=== PATIENT | male | born 1935 | race Caucasian/White ===

== ENCOUNTER 2016-04-28 14:22 | Emergency (ER) | payer MEDICARE ==
[~2016-04-28] VITALS: Ht 170.2 cm; Wt 117.9 kg
[~2016-04-28 14:22] MED LIST: AVOD0.5CAP PO; LSNP20T PO; LVF250T PO; MELO-198 PO; METR500T PO; MTF500T PO; OMG1KC PO; ONDAN4ODT PO; TAMS0.4C2 PO; VIT1TABL57 PO
[2016-04-28] MEDS ORDERED: RT-ALBUTEROL/IPRATROPIUM 3 ML (DUONEB) VIAL INH ONE (14:45)
--- NOTE | 2016-04-28 15:07 | ED Cough/URI ---
General Chief Complaint: Cough/Cold/Flu Symptoms Stated Complaint: COUGH/CONGESTION WEAKNESS Nursing Triage Note: PT HAS COLD COUGH FLU SX, WAS SEEN BY DR WOLFF AND GIVEN SCRIPTS, NOT ANY BETTER Source: patient Exam Limitations: no limitations History of Present Illness Time seen by provider: 15:07 Initial Comments 80-year-old male patient presents to the emergency department with complaints of cough, congestion, shortness of air, and intermittent wheezing. Patient states he was given prescriptions for prednisone and albuterol inhaler by Dr. Wolff. Denies any improvement in symptoms. Timing/Duration: constant, week Severity/Quality: productive cough Prior Episodes/Possible Cause: no prior episodes Modifying Factors: Worse With Albuterol Inhaler (no improvement), Worse With Coughing Allergies and Home Medications Allergies Coded Allergies: No Known Drug Allergies (Unverified , 05/27/12) Home Medications Albuterol Sulfate 2.5 Mg/3 Ml Vial.neb #28 2.5 MG IH Q6H PRN PRN SHORTNESS OF BREATH Prescribed by: REYNA GANT on 04/28/161541 Azithromycin 250 Mg Tablet #6 250 MG PO UD TAKE 2 TABLETS TODAY, THEN TAKE 1 TABLET DAILY FOR 4 MORE DAYS Prescribed by: REYNA GANT on 04/28/161541 Dutasteride 0.5 Mg Cap 0.5 MG PO DAILY (Reported) Lisinopril 20 Mg Tab 20 MG PO DAILY (Reported) Metformin Hcl 500 Mg Tablet 1 EACH PO DAILY (Reported) [place] 3 Polyunsat Fatty Acids 1,000 Mg Cap 1,000 MG PO DAILY (Reported) Prednisone 20 Mg Tab #10 20 MG PO BID Prescribed by: REYNA GANT on 04/28/161541 Promethazine HCl/Codeine 118 Ml Syrup #120 5 ML PO Q6H PRN PRN COUGH Prescribed by: REYNA GANT on 04/28/16 154 Tamsulosin Hcl 0.4 Mg Cap.sr.24h 0.4 MG PO DAILY (Reported) Vit D3 & K/Berberine Hcl/Hops 1 Each Tablet 1 EACH PO DAILY (Reported) Constitutional: chillsNo diaphoresis, No dizziness, fever (low-grade fevers) malaise EENTM: no symptoms reported Respiratory: see HPI coughNo dyspnea on exertion, No orthopnea, phlegm short of breath wheezing other (rib pain with coughing) Cardiovascular: no symptoms reportedNo edema, No palpitations, No syncope Gastrointestinal: No abdominal pain, No constipation, No diarrhea, No nausea, No vomiting Genitourinary: no symptoms reported Musculoskeletal: no symptoms reported Skin: no symptoms reported Psychiatric/Neurological: No Symptoms Reported Immunological/Allergic: no symptoms reported All Other Systems Reviewed Negative Unless Noted: Yes (Negative excepted noted.) Past Tmtjzfj-Acckqy-Bkfhln Hx Patient Social History Alcohol Use: Denies Use Recreational Drug Use: No Smoking Status: Never a Smoker Recent Foreign Travel: No Contact w/Someone Who Travel: No Recent Infectious Disease Expo: No Recent Hopitalizations: No Immunizations Up To Date Date of Pneumonia Vaccine: Aug 21, 2012 Seasonal Allergies Seasonal Allergies: No Surgeries HX Surgeries: Yes (HERNIA REPAIR) Respiratory Hx Respiratory Disorders: No Cardiovascular Hx Cardiac Disorders: No Neurological Hx Neurological Disorders: No Genitourinary Hx Genitourinary Disorders: No Gastrointestinal Hx Gastrointestinal Disorders: Yes Gastrointestinal Disorders: Gastroesophageal Reflux, Veras's Esophagus, Hiatal Hernia Musculoskeletal Hx Musculoskeletal Disorders: No Endocrine Hx Endocrine Disorders: Yes (borderline diabetes.) Endocrine Disorders: Diabetes, Non-Insulin dep Cancer Hx Cancer: No Psychosocial Hx Psychiatric Problems: No Integumentary HX Skin/Integumentary Disorder: No Blood Transfusions Hx Blood Disorders: No Reviewed Nursing Assessment Reviewed/Agree w Nursing PMH: Yes Family Medical History Significant Family History: No Pertinent Family Hx Physical Exam Vital Signs Capillary Refill : Less Than 3 Seconds General Appearance: WD/WN no apparent distress HEENT: PERRL/EOMI TMs normal pharyngeal erythema Neck: supple normal inspection Respiratory: no respiratory distress no accessory muscle use decreased breath sounds wheezing expiration other (ribs tender to palpation.) Cardiovascular: normal peripheral pulses regular rate, rhythm no edema no murmur Gastrointestinal: non tender softNo distended Extremities: no pedal edema normal capillary refill Neurologic/Psychiatric: alert normal mood/affect oriented x 3 Skin: normal color warm/dry Progress/Results/Core Measures Results/Orders My Orders Orders-REYNA GANT Chest Pa/Lat (2 View) (04/28/16 14:43) Albuterol/Ipra Inhalation Soln (Duoneb I (04/28/16 14:45) Svn Sm Volume Nebulizer Rt-Rfs (04/28/16 14:43) Medications Given in ED Vital Signs/I&O Blood Pressure Mean: 77 Diagnostic Imaging Diagonstic Imaging: Xray Plain Films/CT/US/NM/MRI: chest Comments FINDINGS: Frontal and lateral views of the chest demonstrate stable calcified mediastinal lymph nodes. The lungs are clear. The heart size and vascularity are normal. There are no pleural effusions. IMPRESSION: Negative chest. Dictated by: Dictated on workstation # [id number] Reviewed: Reviewed by Me (radiology report reviewed by me) Departure Communication Progress Notes Patient reports improved symptoms after the nebulizer treatment. Patient states he is also using his albuterol inhaler incorrectly at home. Diagnostic findings discussed with the patient. Plan for discharge to home. Impression Impression: Primary Impression: Acute bronchitis Qualified Code: J20.9 - Acute bronchitis, unspecified Disposition: HOME, SELF-CARE Condition: Improved Departure-Patient Inst. Decision time for Depature: 15:37 Referrals: LUIS CARLOS WOLFF DO (PCP/Family) Primary Care Physician Patient Instructions: Acute Bronchitis, Adult (DC) Add. Discharge Instructions: All discharge instructions reviewed with patient and/or family. Voiced understanding. Medications as instructed. Tylenol extra strength over-the- counter as directed for pain, fever, or headache. Ibuprofen 600 mg by mouth every 6-8 hours as needed for pain, headache, or fever. Push fluids. Humidifier if needed. Follow-up with Dr. Wolff as an outpatient for a recheck if no improvement in symptoms. Return to the emergency department for worsened cough, shortness of air, fever, dizziness, chest pain, vomiting, or any other concerns. Scripts Nebulizer (Compact Compressor Nebulizer)1 Each Each #1 EACH MC Q6H PRN SHORTNESS OF BREATH Ref 0 Prov:REYNA GANT 04/28/16 Azithromycin (Zithromax)250 Mg Htdool648 Mg PO UD #6 TAB Ref 0 TAKE 2 TABLETS TODAY, THEN TAKE 1 TABLET DAILY FOR 4 MORE DAYS Prov:REYNA GANT 04/28/16 Promethazine HCl/Codeine (Promethazine-Codeine Syrup)118 Ml Syrup5 Ml PO Q6H PRN COUGH #120 ML Ref 0 Prov:REYNA GANT 04/28/16 Albuterol Sulfate 2.5 Mg/3 Ml Vial.neb2.5 Mg IH Q6H PRN SHORTNESS OF BREATH #28 EA Ref 0 Prov:REYNA GANT 04/28/16 Prednisone 20 Mg Tab20 Mg PO BID #10 TAB Ref 0 Prov:REYNA GANT 04/28/16 REYNA GANT Apr 28, 2016 15:07
--- NOTE | 2016-04-28 15:10 | Diagnostic Imaging Report ---
INDICATION: Patient has been treated with cough and flu-like symptoms with medications and not getting better. COMPARISON STUDY: Chest from 05/04/2013. FINDINGS: Frontal and lateral views of the chest demonstrate stable calcified mediastinal lymph nodes. The lungs are clear. The heart size and vascularity are normal. There are no pleural effusions. IMPRESSION: Negative chest. Dictated by: Dictated on workstation # [id number]
[2016-04-28] MEDS ORDERED: CODE118S2 PO (15:42)
[2016-04-28] MEDS ORDERED: PRD20T PO (15:42)
[2016-04-28] MEDS ORDERED: NEBU1KIT3 MC ×2 (15:42→17:00)
[2016-04-28] MEDS ORDERED: AZIT250T PO (15:42)
[2016-04-28] MEDS ORDERED: ALBU2.5V4 IH (15:42)
[2016-04-28 16:46] VITALS: BP 115/59
== END 2016-04-28 15:52 | disposition home or self-care (01) ==
LOC: EDUNIT# 14:22 → ER 14:24
DX: J20.9 Acute bronchitis, unspecified (principal); R53.1 Weakness; E11.9 Type 2 diabetes mellitus without complications; Z79.84 Long term (current) use of oral hypoglycemic drugs; Z79.899 Other long term (current) drug therapy
CPT/HCPCS: 71020; 94640; 99282

== ENCOUNTER 2016-09-18 09:35 | Emergency (ER) | payer MEDICARE ==
[~2016-09-18] VITALS: Ht 170.2 cm; Wt 113.4 kg
[~2016-09-18 09:35] MED LIST changes: +ALBU2.5V4 IH; +AZIT250T PO; +CODE118S2 PO; +NEBU1KIT3 MC; +PRD20T PO
[2016-09-18 11:36] LABS: BASOPHILS % (AUTO) 0 % (0-10); EOSINOPHILS # (AUTO) 0.1 10^3/uL (0.0-0.3); EOSINOPHILS % (AUTO) 1 % (0-10); LYMPHOCYTES # (AUTO) 2.2 X 10^3 (1.0-4.0); LYMPHOCYTES % (AUTO) 25 % (12-44); MEAN CORPUSCULAR HEMOGLOBIN 29 PG (25-34); MEAN CORPUSCULAR HGB CONC 33 G/DL (32-36); MEAN CORPUSCULAR VOLUME 89 FL (80-99); MEAN PLATELET VOLUME 10.9 FL (7.4-10.4); MONOCYTES # (AUTO) 0.8 X 10^3 (0.0-1.0); MONOCYTES % (AUTO) 9 % (0-12); NEUTROPHILS # (AUTO) 5.8 X 10^3 (1.8-7.8); NEUTROPHILS % (AUTO) 65 % (42-75); PLATELET COUNT 157 10^3/uL (130-400); RED BLOOD COUNT 4.56 10^6/uL (4.35-5.85); RED CELL DISTRIBUTION WIDTH 13.8 % (10.0-14.5)
[2016-09-18 11:48] LABS: BILIRUBIN,URINE NEGATIVE (NEGATIVE); KETONES,URINE NEGATIVE (NEGATIVE); LEUKOCYTE ESTERASE ,URINE NEGATIVE (NEGATIVE); NITRITE,URINE NEGATIVE (NEGATIVE); PH,URINE 5 (5-9); PROTEIN,URINE 1+ (NEGATIVE); UROBILINOGEN,URINE NORMAL (NORMAL)
[2016-09-18 11:53] LABS: ANION GAP 13 MMOL/L (5-14); BLOOD UREA NITROGEN 20 MG/DL (7-18); BUN/CREATININE RATIO 19; CARBON DIOXIDE 21 MMOL/L (21-32); CHLORIDE 106 MMOL/L (98-107); CREATININE SERUM 1.05 MG/DL (0.60-1.30); POTASSIUM 4.4 MMOL/L (3.6-5.0); SODIUM 140 MMOL/L (135-145)
[2016-09-18 11:54] LABS: ALANINE AMINOTRANSFERASE 22 U/L (0-55); ALBUMIN 3.7 GM/DL (3.2-4.5); ASPARTATE AMINO TRANSFERASE 14 U/L (5-34); BILIRUBIN,TOTAL 0.8 MG/DL (0.1-1.0); CALCIUM 8.6 MG/DL (8.5-10.1); GFR ESTIMATED > 60; GLUCOSE 92 MG/DL (70-105); TOTAL PROTEIN 6.4 GM/DL (6.4-8.2)
--- NOTE | 2016-09-18 11:58 | ED Abdominal Pain ---
General Chief Complaint: Abdominal/GI Problems Stated Complaint: SHARP ABD PAINS Nursing Triage Note: ARRIVED VIA AMB WITH COMPLAINTS OF LEFT LOWER ABD PAIN FOR 3 DAYS. STATES HE THINKS ITS HIS DIVERTICULITIS. Sepsis Screen: No Definite Risk Source of Information: Patient Exam Limitations: No Limitations History of Present Illness Time Seen By Provider: 11:58 Initial Comments 80-year-old male patient presents to the emergency department with complaints of left lower abdominal pain for 3 days. Patient reports having a previous episode of diverticulitis 3-4 years ago and states this feels similar to that pain. Denies fever, chills, nausea, vomiting, melena, hematochezia. Denies urinary symptoms. Timing/Duration: 3-4 Days, Getting Worse Severity/Quality: Aching, Cramping Location: LLQ Radiation: No Radiation Activities at Onset: None Modifying Factors: Worsens With Movement, Worsens With Palpation Allergies and Home Medications Allergies Coded Allergies: No Known Drug Allergies (Unverified , 05/27/12) Home Medications Albuterol Sulfate 2.5 Mg/3 Ml Vial.neb, 2.5 MG IH Q6H PRN for SHORTNESS OF BREATH, #28 Ref 0 Prescribed by: REYNA GANT on 04/28/16 1542 Azithromycin 250 Mg Tablet, 250 MG PO UD, #6 Ref 0 TAKE 2 TABLETS TODAY, THEN TAKE 1 TABLET DAILY FOR 4 MORE DAYS Prescribed by: REYNA GANT on 04/28/16 1542 Dutasteride 0.5 Mg Cap, 0.5 MG PO DAILY, (Reported) Hydrocodone/Acetaminophen 1 Each Tablet, 1 EACH PO Q4H PRN for PAIN, #20 Ref 0 Prescribed by: REYNA GANT on 09/18/16 1358 Levofloxacin 500 Mg Tablet, 500 MG PO DAILY, #10 Ref 0 Prescribed by: REYNA GANT on 09/18/16 1358 Lisinopril 20 Mg Tab, 20 MG PO DAILY, (Reported) Metformin Hcl 500 Mg Tablet, 1 EACH PO DAILY, (Reported) Metronidazole 500 Mg Tablet, 500 MG PO TID, #30 Ref 0 Prescribed by: REYNA GANT on 09/18/16 1358 [place] 3 Polyunsat Fatty Acids 1,000 Mg Cap, 1,000 MG PO DAILY, (Reported) Ondansetron 8 Mg Tab.rapdis, 8 MG PO Q6H PRN for NAUSEA/VOMITING-1ST LINE, #10 Ref 0 Prescribed by: REYNA GANT on 09/18/16 1358 Prednisone 20 Mg Tab, 20 MG PO BID, #10 Ref 0 Prescribed by: REYNA GANT on 04/28/16 1542 Promethazine HCl/Codeine 118 Ml Syrup, 5 ML PO Q6H PRN for COUGH, #120 Ref 0 Prescribed by: REYNA GANT on 04/28/16 1542 Tamsulosin Hcl 0.4 Mg Cap.sr.24h, 0.4 MG PO DAILY, (Reported) Vit D3 & K/Berberine Hcl/Hops 1 Each Tablet, 1 EACH PO DAILY, (Reported) Review of Systems Constitutional: No chills, No fever, No malaise Respiratory: Denies Cough, Denies Shortness of Air Cardiovascular: Denies Chest Pain, Denies Palpitations Gastrointestinal: See HPI, Denies Abdomen Distended, Abdominal Pain, Denies Blood Streaked Stools, Denies Constipated, Denies Diarrhea, Denies Nausea, Denies Poor Appetite, Denies Poor Fluid Intake, Denies Rectal Bleeding, Denies Vomiting Genitourinary: Denies Burning, Denies Frequency, Denies Flank Pain, Denies Hematuria Musculoskeletal: No back pain Skin: no symptoms reported Psychiatric/Neurological: No Symptoms Reported All Other Systems Reviewed Negative Unless Noted: Yes (Negative excepted noted.) Past Bjmxcyj-Napirr-Xaziwv Hx Patient Social History Recent Foreign Travel: No Contact w/Someone Who Travel: No Recent Infectious Disease Expo: No Recent Hopitalizations: No Immunizations Up To Date Date of Pneumonia Vaccine: Aug 21, 2012 Seasonal Allergies Seasonal Allergies: No Surgeries HX Surgeries: Yes (HERNIA REPAIR) Surgeries: Adenoidectomy, Gallbladder, Tonsillectomy Respiratory Hx Respiratory Disorders: No Cardiovascular Hx Cardiac Disorders: Yes Cardiac Disorders: Hypertension Neurological Hx Neurological Disorders: Yes Neurological Disorders: Neuropathy Genitourinary Hx Genitourinary Disorders: No Gastrointestinal Hx Gastrointestinal Disorders: Yes Gastrointestinal Disorders: Gastroesophageal Reflux, Veras's Esophagus, Diverticulosis, Hiatal Hernia Musculoskeletal Hx Musculoskeletal Disorders: No Endocrine Hx Endocrine Disorders: Yes (borderline diabetes.) Endocrine Disorders: Diabetes, Non-Insulin dep Cancer Hx Cancer: No Psychosocial Hx Psychiatric Problems: No Integumentary HX Skin/Integumentary Disorder: No Blood Transfusions Hx Blood Disorders: No Reviewed Nursing Assessment Reviewed/Agree w Nursing PMH: Yes Family Medical History Significant Family History: No Pertinent Family Hx Physical Exam Vital Signs VS - Last 72 Hours, by Label 09/18/16 09/18/16 11:21 15:29 Temp 98.0 98.0 Pulse 71 71 Resp 16 B/P (MAP) 122/72 Pulse Ox 94 94 O2 Delivery Room Air Capillary Refill : Less Than 3 Seconds General Appearance: WD/WN, no apparent distress HEENT: PERRL/EOMI, pharynx normal Neck: supple, normal inspection Respiratory: lungs clear, normal breath sounds, no respiratory distress Cardiovascular: normal peripheral pulses, regular rate, rhythm, no edema, no murmur Gastrointestinal: normal bowel sounds, soft, no organomegaly, No distended, guarding (left lower quadrant), No rebound, tenderness (left lower quadrant) Extremities: no pedal edema, normal capillary refill Back: normal inspection, no CVA tenderness Neurologic/Psychiatric: alert, normal mood/affect, oriented x 3 Skin: normal color, warm/dry Progress/Results/Core Measures Results/Orders Lab Results Laboratory Tests Test 09/18/16 11:30 09/18/16 11:41 Range/Units White Blood Count 9.0 4.3-11.0 10^3/uL Red Blood Count 4.56 4.35-5.85 10^6/uL Hemoglobin 13.4 13.3-17.7 G/DL Hematocrit 41 40-54 % Mean Corpuscular Volume 89 80-99 FL Mean Corpuscular Hemoglobin 29 25-34 PG Mean Corpuscular Hemoglobin Concent 33 32-36 G/DL Red Cell Distribution Width 13.8 10.0-14.5 % Platelet Count 157 130-400 10^3/uL Mean Platelet Volume 10.9 H 7.4-10.4 FL Neutrophils (%) (Auto) 65 42-75 % Lymphocytes (%) (Auto) 25 12-44 % Monocytes (%) (Auto) 9 0-12 % Eosinophils (%) (Auto) 1 0-10 % Basophils (%) (Auto) 0 0-10 % Neutrophils # (Auto) 5.8 1.8-7.8 X 10^3 Lymphocytes # (Auto) 2.2 1.0-4.0 X 10^3 Monocytes # (Auto) 0.8 0.0-1.0 X 10^3 Eosinophils # (Auto) 0.1 0.0-0.3 10^3/uL Basophils # (Auto) 0.0 0.0-0.1 10^3/uL Sodium Level 140 135-145 MMOL/L Potassium Level 4.4 3.6-5.0 MMOL/L Chloride Level 106 98-107 MMOL/L Carbon Dioxide Level 21 21-32 MMOL/L Anion Gap 13 5-14 MMOL/L Blood Urea Nitrogen 20 H 7-18 MG/DL Creatinine 1.05 0.60-1.30 MG/DL Estimat Glomerular Filtration Rate > 60 BUN/Creatinine Ratio 19 Glucose Level 92 70-105 MG/DL Calcium Level 8.6 8.5-10.1 MG/DL Total Bilirubin 0.8 0.1-1.0 MG/DL Aspartate Amino Transf (AST/SGOT) 14 5-34 U/L Alanine Aminotransferase (ALT/SGPT) 22 0-55 U/L Alkaline Phosphatase 65 40-136 U/L Total Protein 6.4 6.4-8.2 GM/DL Albumin 3.7 3.2-4.5 GM/DL Urine Color YELLOW Urine Clarity SLIGHTLY CLOUDY Urine pH 5 5-9 Urine Specific [place] 1.025 H 1.016-1.022 Urine Protein 1+ H NEGATIVE Urine Glucose (UA) NEGATIVE NEGATIVE Urine Ketones NEGATIVE NEGATIVE Urine Nitrite NEGATIVE NEGATIVE Urine Bilirubin NEGATIVE NEGATIVE Urine Urobilinogen NORMAL NORMAL MG/DL Urine Leukocyte Esterase NEGATIVE NEGATIVE Urine RBC (Auto) NEGATIVE NEGATIVE Urine RBC NONE /HPF Urine WBC NONE /HPF Urine Squamous Epithelial Cells RARE /HPF Urine Crystals NONE /LPF Urine Bacteria NEGATIVE /HPF Urine Casts NONE /LPF Urine Mucus NEGATIVE /LPF Urine Culture Indicated NO My Orders Orders - REYNA GANT Cbc With Automated Diff (09/18/16 11:30) Comprehensive Metabolic Panel (09/18/16 11:30) Ua Culture If Indicated (09/18/16 11:30) Saline Lock/Iv-Start (09/18/16 11:30) Ct Abdomen/Pelvis W (09/18/16 12:14) Iohexol Injection (Omnipaque 350 Mg/Ml 1 (09/18/16 12:30) Ns (Ivpb) (Sodium Chloride 0.9% Ivpb Bag (09/18/16 12:30) Ns Iv 1000 Ml (Sodium Chloride 0.9%) (09/18/16 13:25) Piperacillin Sodium/Tazobactam (Zosyn Vi (09/18/16 13:30) Medications Given in ED Vital Signs/I&O Vital Sign - Last 12Hours 09/18/16 09/18/16 11:21 15:29 Temp 98.0 98.0 Pulse 71 71 Resp 16 B/P (MAP) 122/72 Pulse Ox 94 94 O2 Delivery Room Air Blood Pressure Mean: 89 Diagnostic Imaging Diagonstic Imaging: CT Plain Films/CT/US/NM/MRI: abdomen, pelvis Comments FINDINGS: The osseous structures demonstrate no acute disease. Visualized lung bases unremarkable. The liver demonstrates mild fatty infiltration. Evidence of previous cholecystectomy noted. The spleen is stable and unremarkable. Pancreas demonstrates some atrophy but is otherwise normal in appearance. Adrenal glands appear unremarkable. There is marked atrophy and cortical thinning of the kidneys similar to previous imaging. There is diffuse atherosclerotic disease. A fat-containing intra-abdominal wall hernia is noted stable from prior. There is diffuse diverticulosis. There is mild fat stranding seen surrounding the distal descending colon suggestive of early acute findings of diverticulitis. No adjacent free air or abscess is appreciated. No obstructive process seen. No ascites. No lymphadenopathy. IMPRESSION: 1. Findings suspect for early diverticulitis as described above. Other incidental findings as noted. Dictated on workstation # [id number] Reviewed: Reviewed by Me (radiology report reviewed by me) Departure Communication Progress Notes Laboratory and diagnostic findings discussed with the patient. Patient continues to deny need for pain medication. Plan for discharge to home with oral and buttocks. Patient given 1 dose of Zosyn in the emergency department. All return precautions were discussed with the patient as described in the discharge instructions of this report. Patient voices understanding and agrees with the treatment plan. Impression Impression: Primary Impression: Diverticulitis of intestine Qualified Codes: K57.32 - Diverticulitis of large intestine without perforation or abscess without bleeding Disposition: 01 HOME, SELF-CARE Condition: Improved Departure-Patient Inst. Decision time for Depature: 13:29 Referrals: NELDA MOCTEZUMA MD, WILLIAM J DO (PCP/Family) Primary Care Physician Patient Instructions: Diverticulitis (DC) Add. Discharge Instructions: All discharge instructions reviewed with patient and/or family. Voiced understanding. Dictations as instructed. Continue usual home medications. Drink plenty of fluids. Avoid seeds, nuts, and popcorn kernels. Clear liquid diet until symptoms improve, then increase diet to a low residue diet. Follow- up with your family practitioner for recheck Tuesday or Tuesday, call first thing Tuesday morning for appointment time. Follow-up with Dr. Moctezuma as an outpatient for possible need of colonoscopy. Return to the emergency department immediately for worsened pain, fever, rectal bleeding, abdominal swelling, vomiting, decreased urination, inability to urinate, or any other concerns. Scripts Ondansetron (Ondansetron Odt) 8 Mg Tab.rapdis 8 MG PO Q6H Y for NAUSEA/VOMITING-1ST LINE, #10 TAB 0 Refills Prov: REYNA GANT 09/18/16 Hydrocodone/Acetaminophen (Hydrocodon -Acetaminophen 5-325) 1 Each Tablet 1 EACH PO Q4H Y for PAIN, #20 TAB 0 Refills Prov: REYNA GANT 09/18/16 Metronidazole (Metronidazole) 500 Mg Tablet 500 MG PO TID, #30 TAB 0 Refills Prov: REYNA GANT 09/18/16 Levofloxacin (Levofloxacin) 500 Mg Tablet 500 MG PO DAILY, #10 TAB 0 Refills Prov: REYNA GANT 09/18/16 REYNA GANT Sep 18, 2016 11:58
[2016-09-18 12:04] LABS: SQUAMOUS EPITHELIAL CELL,UR RARE /HPF
[2016-09-18] MEDS ORDERED: IOHEXOL 350 MG/ML 100 ML (OMNIPAQUE 350) VIAL IV ONE (12:30)
[2016-09-18] MEDS ORDERED: NS 100 ML (IVPB) BAG IV ONE (12:30)
--- NOTE | 2016-09-18 13:20 | Diagnostic Imaging Report ---
PROCEDURE: CT abdomen and pelvis with contrast. TECHNIQUE: Multiple contiguous axial images were obtained through the abdomen and pelvis after administration of intravenous contrast. INDICATION: Left lower quadrant pain for 3 days, constipation. History of previous gallbladder and hernia surgery. EXAMINATION: CT abdomen and pelvis with contrast 09/18/2016. Comparison made to previous CT dated 12/22/2012 FINDINGS: The osseous structures demonstrate no acute disease. Visualized lung bases unremarkable. The liver demonstrates mild fatty infiltration. Evidence of previous cholecystectomy noted. The spleen is stable and unremarkable. Pancreas demonstrates some atrophy but is otherwise normal in appearance. Adrenal glands appear unremarkable. There is marked atrophy and cortical thinning of the kidneys similar to previous imaging. There is diffuse atherosclerotic disease. A fat-containing intra-abdominal wall hernia is noted stable from prior. There is diffuse diverticulosis. There is mild fat stranding seen surrounding the distal descending colon suggestive of early acute findings of diverticulitis. No adjacent free air or abscess is appreciated. No obstructive process seen. No ascites. No lymphadenopathy. IMPRESSION: 1. Findings suspect for early diverticulitis as described above. Other incidental findings as noted. Dictated by: Dictated on workstation # [id number]
[2016-09-18] MEDS ORDERED: NS IV 1000 ML 1,000 ML IV ONE (13:25)
[2016-09-18] MEDS ORDERED: PIPERACILLIN/TAZO 4.5 GM VIAL (ZOSYN) IV ONE (13:30)
[2016-09-18] MEDS ORDERED: HYDR-3812 PO (13:58)
[2016-09-18] MEDS ORDERED: METR500T21 PO (13:58)
[2016-09-18] MEDS ORDERED: LEVO500T80 PO (13:58)
[2016-09-18] MEDS ORDERED: ONDA8TAB13 PO (13:58)
[2016-09-18 15:29] VITALS: BP 122/72
== END 2016-09-18 15:29 | disposition home or self-care (01) ==
LOC: EDUNIT# 09:35 → ER 09:36
DX: K57.52 Diverticulitis of both small and large intestine without perforation or abscess without bleeding (principal); E11.40 Type 2 diabetes mellitus with diabetic neuropathy, unspecified; I10 Essential (primary) hypertension; K21.9 Gastro-esophageal reflux disease without esophagitis; Z90.49 Acquired absence of other specified parts of digestive tract; Z90.89 Acquired absence of other organs; Z79.84 Long term (current) use of oral hypoglycemic drugs
CPT/HCPCS: 36415; 74177; 80053; 81000; 85025

== ENCOUNTER 2017-09-17 17:40 | Emergency (ER) | payer MEDICARE ==
[~2017-09-17] VITALS: Ht 170.2 cm; Wt 115.7 kg
[~2017-09-17 17:40] MED LIST changes: +ACHD5005 PO; -CODE118S2 PO; +CODE118S4 PO; +LEVO500T80 PO; +METR500T21 PO; +ONDA8TAB13 PO
[2017-09-17 17:55] LABS: BASOPHILS % (AUTO) 0 % (0-10); EOSINOPHILS # (AUTO) 0.1 10^3/uL (0.0-0.3); EOSINOPHILS % (AUTO) 1 % (0-10); HEMATOCRIT 42 % (40-54); HEMOGLOBIN 14.6 G/DL (13.3-17.7); LYMPHOCYTES % (AUTO) 32 % (12-44); MEAN CORPUSCULAR HEMOGLOBIN 30 PG (25-34); MEAN CORPUSCULAR HGB CONC 34 G/DL (32-36); MEAN CORPUSCULAR VOLUME 88 FL (80-99); MEAN PLATELET VOLUME 11.3 FL (7.4-10.4); MONOCYTES # (AUTO) 0.7 X 10^3 (0.0-1.0); MONOCYTES % (AUTO) 8 % (0-12); NEUTROPHILS # (AUTO) 5.6 X 10^3 (1.8-7.8); NEUTROPHILS % (AUTO) 59 % (42-75); PLATELET COUNT 125 10^3/uL (130-400); RED CELL DISTRIBUTION WIDTH 14.7 % (10.0-14.5); WHITE BLOOD COUNT 9.5 10^3/uL (4.3-11.0)
[2017-09-17] MEDS ORDERED: ASPIRIN 81 MG CHEW (CHILDREN'S ASA) PO ONE (18:00)
--- NOTE | 2017-09-17 18:03 | ED Chest Pain ---
General Stated Complaint: CHEST PAIN Source: patient, spouse Exam Limitations: no limitations History of Present Illness Date Seen by Provider: Sep 17, 2017 Time Seen by Provider: 17:45 Initial Comments The patient presents to the ER by private conveyance with his and a chief complaint she's been having some chest pain off and on for the past couple weeks. He says it feels like electrical shock from cattle prod. Uses a last momentarily less than second and is usually comes while he is at rest either standing or sitting. He says he started getting them once every other day or so but then today he's had it 3 times and this concerned his so she insisted he come get checked out. He's had a stress test in the distant past but he does not have any known coronary artery disease, stents or thoracic surgery. He has no known pulmonary disease and never smoked. He has no thyroid problems but he does take medication for blood pressure. He is not on any cholesterol medicines and does not take aspirin. He has not had any aspirin today. He is not having any shortness of breath chills sweats radiation of any pain to the shoulders or neck or jawline. He's not having any wheezing, cough, fevers chills or nausea. The only surgeries had is on his hernia many years ago. Allergies and Home Medications Allergies Coded Allergies: No Known Drug Allergies (Unverified , 05/27/12) Home Medications Albuterol Sulfate 2.5 Mg/3 Ml Vial.neb, 2.5 MG IH Q6H PRN for SHORTNESS OF BREATH Prescribed by: REYNA GANT on 04/28/161541 Azithromycin 250 Mg Tablet, 250 MG PO UD TAKE 2 TABLETS TODAY, THEN TAKE 1 TABLET DAILY FOR 4 MORE DAYS Prescribed by: REYNA GANT on 04/28/16 154 Dutasteride 0.5 Mg Cap, 0.5 MG PO DAILY, (Reported) Hydrocodone Bit/Acetaminophen 1 Each Tablet, 1 EACH PO Q4H PRN for PAIN Prescribed by: REYNA GANT on 09/18/16 135 Levofloxacin 500 Mg Tablet, 500 MG PO DAILY Prescribed by: REYNA GANT on 09/18/16 1358 Lisinopril 20 Mg Tab, 20 MG PO DAILY, (Reported) Metformin Hcl 500 Mg Tablet, 1 EACH PO DAILY, (Reported) Metronidazole 500 Mg Tablet, 500 MG PO TID Prescribed by: REYNA GANT on 09/18/16 1358 [place] 3 Polyunsat Fatty Acids 1,000 Mg Cap, 1,000 MG PO DAILY, (Reported) Ondansetron 8 Mg Tab.rapdis, 8 MG PO Q6H PRN for NAUSEA/VOMITING-1ST LINE Prescribed by: REYNA GANT on 09/18/16 1358 Prednisone 20 Mg Tab, 20 MG PO BID Prescribed by: REYNA GANT on 04/28/16 1542 Promethazine HCl/Codeine 118 Ml Syrup, 5 ML PO Q6H PRN for COUGH Prescribed by: REYNA GANT on 04/28/16 1542 Tamsulosin Hcl 0.4 Mg Cap.sr.24h, 0.4 MG PO DAILY, (Reported) Vit D3 & K/Berber[place] Hcl/Hops 1 Each Tablet, 1 EACH PO DAILY, (Reported) Patient Home Medication List Home Medication List Reviewed: Yes Review of Systems Constitutional: No chills, No diaphoresis EENTM: No Blurred Vision, No Double Vision Respiratory: Denies Cough, Denies Shortness of Air, Denies SOA With Exertion, Denies Wheezing Cardiovascular: See HPI, Chest Pain Gastrointestinal: Denies Abdomen Distended, Denies Abdominal Pain, Denies Constipated, Denies Diarrhea, Denies Nausea Genitourinary: Denies Burning, Denies Discharge, Denies Drainage Musculoskeletal: No back pain, No joint pain Skin: No pruritus, No rash Psychiatric/Neurological: Denies Headache, Denies Numbness, Denies Paresthesia Past Qashkrj-Lrtvor-Gqbibf Hx Patient Social History Alcohol Use: Denies Use Recreational Drug Use: No Smoking Status: Never a Smoker Recent Foreign Travel: No Contact w/Someone Who Travel: No Recent Hopitalizations: No Immunizations Up To Date Date of Pneumonia Vaccine: Aug 21, 2012 Seasonal Allergies Seasonal Allergies: No Past Medical History Surgeries: Yes (HERNIA REPAIR) Adenoidectomy, Gallbladder, Tonsillectomy Respiratory: No Cardiac: Yes Hypertension Neurological: Yes Neuropathy Genitourinary: No Gastrointestinal: Yes (DIVERTICULITIS) Gastroesophageal Reflux, Veras's Esophagus, Diverticulosis, Hiatal Hernia Musculoskeletal: No Endocrine: Yes (borderline diabetes.) Diabetes, Non-Insulin dep Cancer: No Did You Recieve Any Treatments: No Psychosocial: No Integumentary: No Blood Disorders: No Family Medical History No Pertinent Family Hx Physical Exam Vital Signs Vital Signs - First Documented Capillary Refill : Height, Weight, BMI Height: 5'7.00" Weight: 250lbs. oz. [phone]; BMI Method:Stated General Appearance: No Apparent Distress, Obese HEENT: PERRL/EOMI, Pharynx Normal Neck: Full Range of Motion, Normal Inspection, Non Tender, Supple Respiratory: Chest Non Tender, Lungs Clear, Normal Breath Sounds, No Accessory Muscle Use, No Respiratory Distress Cardiovascular: Regular Rate, Rhythm, No Edema, Normal Peripheral Pulses Gastrointestinal: Normal Bowel Sounds, Non Tender, Soft Neurologic/Psychiatric: Alert, Oriented x3 Skin: Normal Color, Warm/Dry Progress/Results/Core Measures Results/Orders Lab Results Laboratory Tests Test 09/17/17 17:50 09/17/17 19:55 Range/Units White Blood Count 9.5 4.3-11.0 10^3/uL Red Blood Count 4.80 4.35-5.85 10^6/uL Hemoglobin 14.6 13.3-17.7 G/DL Hematocrit 42 40-54 % Mean Corpuscular Volume 88 80-99 FL Mean Corpuscular Hemoglobin 30 25-34 PG Mean Corpuscular Hemoglobin Concent 34 32-36 G/DL Red Cell Distribution Width 14.7 H 10.0-14.5 % Platelet Count 125 L 130-400 10^3/uL Mean Platelet Volume 11.3 H 7.4-10.4 FL Neutrophils (%) (Auto) 59 42-75 % Lymphocytes (%) (Auto) 32 12-44 % Monocytes (%) (Auto) 8 0-12 % Eosinophils (%) (Auto) 1 0-10 % Basophils (%) (Auto) 0 0-10 % Neutrophils # (Auto) 5.6 1.8-7.8 X 10^3 Lymphocytes # (Auto) 3.0 1.0-4.0 X 10^3 Monocytes # (Auto) 0.7 0.0-1.0 X 10^3 Eosinophils # (Auto) 0.1 0.0-0.3 10^3/uL Basophils # (Auto) 0.0 0.0-0.1 10^3/uL Prothrombin Time 12.7 12.2-14.7 SEC INR Comment 1.0 0.8-1.4 Activated Partial Thromboplast Time 31 24-35 SEC Sodium Level 140 135-145 MMOL/L Potassium Level 4.3 3.6-5.0 MMOL/L Chloride Level 104 98-107 MMOL/L Carbon Dioxide Level 24 21-32 MMOL/L Anion Gap 12 5-14 MMOL/L Blood Urea Nitrogen 23 H 7-18 MG/DL Creatinine 1.38 H 0.60-1.30 MG/DL Estimat Glomerular Filtration Rate 50 BUN/Creatinine Ratio 17 Glucose Level 132 H 70-105 MG/DL Calcium Level 9.3 8.5-10.1 MG/DL Magnesium Level 2.0 1.8-2.4 MG/DL Total Bilirubin 0.5 0.1-1.0 MG/DL Aspartate Amino Transf (AST/SGOT) 20 5-34 U/L Alanine Aminotransferase (ALT/SGPT) 17 0-55 U/L Alkaline Phosphatase 61 40-136 U/L Myoglobin 92.5 H 10.0-92.0 NG/ML Troponin I < 0.30 < 0.30 <0.30 NG/ML B-Type Natriuretic Peptide 19.4 <100.0 PG/ML Total Protein 6.6 6.4-8.2 GM/DL Albumin 3.9 3.2-4.5 GM/DL Amylase Level 40 25-125 U/L Lipase 28 8-78 U/L My Orders Orders - RAZA PEDERSEN Chest Pa/Lat (2 View) (09/17/17 18:05) Ekg Tracing (09/17/17 19:50) Troponin I (09/17/17 19:50) Medications Given in ED Current Medications Medications Dose Ordered Sig/Bekah Route Start Time Stop Time Status Last Admin Dose Admin Aspirin 324 mg ONCE ONCE PO 09/17/17 18:00 09/17/17 18:01 DC 09/17/17 18:14 324 MG Vital Signs/I&O 09/17/17 09/17/17 17:40 17:40 Temp 98.4 Pulse 87 Resp 19 B/P (MAP) 151/83 (105) O2 Delivery Room Air Room Air Progress Progress Note #1: Time: 18:06 Progress Note His chest pain is not recreated by palpation however he does feel something similar when he takes in a deep breath although is no longer in his mid sternum region he says is feeling it on his right side of his chest. It goes away as soon as he relaxes. It's nowhere near as severe but it is reproducible. Concern for pulmonary or pleuritic type pain is raised as well. We are going to give him aspirin and do a cardiac workup to start. 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 We'll he has a history of GERD this is not really consistent with GERD. Echocardiogram done by Dr. Raymond 2014: Normal left ventricular size wall thickness and function with EF of 60%. Preserved right ventricular systolic function. Negative stress test also from 2014 demonstrating a normal EF of 58%. Known history of GERD, reactive airway disease, diabetes and recent carotid ultrasounds done at the clinic per patient were fine. Suspect obesity hypoventilation syndrome at baseline. ED ACS 18 points. Not low risk. This patient is not a candidate for early discharge and should receive a standard chest pain evaluation with delayed troponin testing. Progress Note #2: Time: 19:00 Progress Note Discussed the conversation with the trimmer operator three knife with the patient and she is not keen on staying overnight if he can avoid it. He is more than willing to follow up Tuesday morning in the clinic. If he is not having any symptoms and his repeat troponin at 2000 hrs. is negative we will allow him to discharge home. We discussed his x-ray findings and if he's having concerns of being short of breath or having any wheezing he should follow-up with his primary care doctor and consider outpatient pulmonary function testing. Initial ECG Impression Date: Sep 17, 2017 Initial ECG Impression Time: 17:48 Initial ECG Rate: 86 Initial ECG Rhythm: Normal Sinus Initial ECG Intervals: Normal Initial ECG Impression: Normal, Nonspecific Changes EKG : EKG Time: 19:25 Rate: 73 Rhythm: Normal Sinus Intervals: Normal ECG Comparisson: Unchanged ECG Impression: Normal, Nonspecific Changes Comment Unchanged. No ST elevation or depression. Diagnostic Imaging Diagonstic Imaging: Xray Plain Films/CT/US/NM/MRI: chest (2v) Comments Unimpressive 2 view of the chest without acute cardiopulmonary processes noted. Stomach gas bubble overlying the midline pericardial space that are viewed from the lateral view. [facility] [place], [place] NAME: FRANCY DANGELO [facility] REC#: [id number] PT STATUS: REG ER : 1935 PHYSICIAN: RAZA PEDERSEN MD ADMIT DATE: 09/17/17/ER Draft Date of Exam:09/17/17 CHEST PA/LAT (2 VIEW) INDICATION: Chest pain. COMPARISON: 04/28/16. FINDINGS: Frontal and lateral views of the chest demonstrate clear lungs bilaterally. The heart is prominent but stable. There is slight hyperinflation likely COPD. There is no pneumothorax, effusion or infiltrate. Osseous structures are stable. IMPRESSION: 1. Cardiac enlargement without pulmonary edema 2. Slight hyperinflation likely COPD. No interval change. Dictated on workstation # [id number] Dict: 09/17/171818 Trans: 09/17/17 [id number] Interpreted by: TASHA DAILEY Electronically signed by: Reviewed: Reviewed by Me Consults : Consulting Physician: Rosario DAVILA MD Consults Notes Discussed the case lab imaging and EKG and he agrees is not likely cardiac that he thinks it be reasonable to follow up in the clinic Tuesday morning and workup his heart. He recommends a rule out today unless the patient wants to be put in the hospital and then he is willing to follow him for inpatient rule out. Departure Impression Primary Impression: Chest pain at rest Disposition: 01 HOME, SELF-CARE Condition: Stable Departure-Patient Inst. Decision time for Depature: 20:41 Referrals: Rosario DAVILA MD, WILLIAM J DO (PCP/Family) Primary Care Physician Patient Instructions: Chest Pain That Is Not Caused by the Heart (DC) Add. Discharge Instructions: Call Dr. Davila at his clinic Tuesday and request an appointment to follow up your chest pain. Follow-up with your primary care provider for any other concerns or findings and we discussed tonight related to your shortness of breath. Copy Copies To 1: Rosario DAVILA MD; LUIS CARLOS DOTSON TITUS J Sep 17, 2017 18:03
[2017-09-17 18:09] LABS: PROTHROMBIN TIME PATIENT 12.7 SEC (12.2-14.7)
[2017-09-17 18:15] LABS: ALANINE AMINOTRANSFERASE 17 U/L (0-55); ALBUMIN 3.9 GM/DL (3.2-4.5); ALKALINE PHOSPHATASE 61 U/L (40-136); AMYLASE 40 U/L (25-125); BILIRUBIN,TOTAL 0.5 MG/DL (0.1-1.0); BUN/CREATININE RATIO 17; CALCIUM 9.3 MG/DL (8.5-10.1); CARBON DIOXIDE 24 MMOL/L (21-32); CHLORIDE 104 MMOL/L (98-107); CREATININE SERUM 1.38 MG/DL (0.60-1.30); GFR ESTIMATED 50; GLUCOSE 132 MG/DL (70-105); LIPASE 28 U/L (8-78); POTASSIUM 4.3 MMOL/L (3.6-5.0); SODIUM 140 MMOL/L (135-145); TOTAL PROTEIN 6.6 GM/DL (6.4-8.2)
[2017-09-17 18:22] LABS: MYOGLOBIN SERUM 92.5 NG/ML (10.0-92.0)
--- NOTE | 2017-09-17 18:33 | Diagnostic Imaging Report ---
INDICATION: Chest pain. COMPARISON: 04/28/16. FINDINGS: Frontal and lateral views of the chest demonstrate clear lungs bilaterally. The heart is prominent but stable. There is slight hyperinflation likely COPD. There is no pneumothorax, effusion or infiltrate. Osseous structures are stable. IMPRESSION: 1. Cardiac enlargement without pulmonary edema 2. Slight hyperinflation likely COPD. No interval change. Dictated by: Dictated on workstation # [id number]
[2017-09-17 20:53] VITALS: BP 114/57
== END 2017-09-17 20:50 | disposition home or self-care (01) ==
LOC: EDUNIT# 17:40 → ER 17:41
DX: R07.89 Other chest pain (principal); I10 Essential (primary) hypertension; E11.9 Type 2 diabetes mellitus without complications; K21.9 Gastro-esophageal reflux disease without esophagitis; Z87.19 Personal history of other diseases of the digestive system; Z79.51 Long term (current) use of inhaled steroids; Z79.84 Long term (current) use of oral hypoglycemic drugs; Z90.89 Acquired absence of other organs
CPT/HCPCS: 36415; 71046; 80053; 82150; 83690; 83735; 83874; 83880; 84484; 85025; 85610; 85730; 93005; 93041

== ENCOUNTER → 2018-11-27 | Outpatient (CLI) | payer MEDICARE ==
[~2018-11-27] MED LIST changes: +METR-145 PO; -METR500T21 PO
--- NOTE | 2018-11-27 12:21 | Diagnostic Imaging Report ---
PROCEDURE: CT head without contrast. TECHNIQUE: Multiple contiguous axial images were obtained through the brain without the use of intravenous contrast. Auto Exposure Controls were utilized during the CT exam to meet ALARA standards for radiation dose reduction. INDICATION: Fall with blurred vision. COMPARISON: No prior studies are available for comparison. FINDINGS: The ventricles and sulci are appropriate for the patient's age. There is mild periventricular hypodensity noted consistent with senescent change. No sulcal effacement or midline shift is detected. No acute intra-axial or extra-axial hemorrhage is identified. Cisterns are patent. Visualized paranasal sinuses are clear. IMPRESSION: No acute intracranial process is detected. Dictated by: Dictated on workstation # [id number]
== END ==
LOC: RAD 11:56
PROVIDERS: ATTEND Internal Medicine
DX: H53.8 Other visual disturbances (principal); R55 Syncope and collapse
CPT/HCPCS: 70450

== ENCOUNTER 2018-11-29 10:45 | Outpatient (RCR) | payer MEDICARE ==
--- NOTE | 2018-11-29 12:32 | Diagnostic Imaging Report ---
CLINICAL INDICATION: Patient with syncope and collapse. COMPARISON: None EXAM: Real-time carotid Doppler duplex imaging is performed bilaterally. Peak systolic velocity, ICA/CCA peak systolic ratio, spectral analysis, and vascular morphology are studied. FINDINGS: ARTERY VELOCITY Right Left CCA 0.64 m/s 0.82 m/s ICA 1.03 m/s 0.92 m/s ECA 0.52 m/s 0.72 m/s ICA/CCA 1.6 1.1 VERT.ART Antegrade Antegrade There is mild bilateral carotid artery atherosclerotic disease mostly in the regions of the bilateral common carotid artery bifurcations without significant stenosis. There are no elevated velocities seen. IMPRESSION: There is mild bilateral carotid artery atherosclerotic disease with no grayscale or Doppler evidence of significant vascular stenosis. Dictated by: Dictated on workstation # [id number]
== END 2019-02-27 | disposition home or self-care (01) ==
LOC: CARD 10:45
PROVIDERS: ATTEND Internal Medicine
DX: I65.23 Occlusion and stenosis of bilateral carotid arteries (principal); I25.10 Atherosclerotic heart disease of native coronary artery without angina pectoris; R55 Syncope and collapse
CPT/HCPCS: 93225; 93226; 93880

== ENCOUNTER → 2018-12-08 | Outpatient (CLI) | payer MEDICARE ==
[~2018-12-08] VITALS: Ht 170 cm; Wt 113.0 kg
[~2018-12-08] MED LIST changes: +CATHETER FLUSH 10 ML SYR IV PRN; +REGADENOSON 0.4 MG/5 ML SYR (LEXISCAN) IV ONE
--- NOTE | 2018-12-08 17:50 | STRESS TEST ---
DATE OF SERVICE: 12/08/2018 RESTING AND POST REGADENOSON TECHNETIUM-99M TETROFOSMIN SPECT CT IMAGING ORDERING PHYSICIAN: Dr. Wolff. CLINICAL DIAGNOSIS: Syncope. Baseline images were carried out after injection of 10.08 mCi of technetium-99m Tetrofosmin. This was followed by 0.4 mg regadenoson and 32.7 mCi of technetium-99m Tetrofosmin for stress imaging. The electrocardiographic portion of the study is reported separately by Dr. Wolff under whose supervision the study was carried out. Review of images at rest and following regadenoson infusion indicate a fixed basal inferior perfusion defect. Gated images show basal inferior hypokinesis. Left ventricular ejection fraction is calculated to be 67%. Left ventricular end diastolic volume is 61 mL. TID is absent (1.07). CONCLUSIONS: 1. 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 2. Basal inferior hypokinesis. 3. Well preserved global left ventricular systolic function with an ejection fraction of 67%. Job ID: [id number] DocumentID: [id number] Dictated Date: 12/08/2018 16:39:06 Splicing Machine Operator Date: 12/08/2018 17:49:17 Dictated By: BORIS PITTMAN MD, MA, FACP, FACC,
== END ==
LOC: CARD 06:32
PROVIDERS: ATTEND Internal Medicine
DX: I51.89 Other ill-defined heart diseases (principal); R55 Syncope and collapse
CPT/HCPCS: 78452; 93017

== ENCOUNTER → 2020-04-17 | Outpatient (CLI) | payer MEDICARE ==
[~2020-04-17] MED LIST changes: -CATHETER FLUSH 10 ML SYR IV PRN; -REGADENOSON 0.4 MG/5 ML SYR (LEXISCAN) IV ONE
--- NOTE | 2020-04-17 14:00 | Diagnostic Imaging Report ---
PROCEDURE: CT urinary tract, rule out kidney stone. TECHNIQUE: Multiple contiguous axial images were obtained through the abdomen and pelvis without the use of intravenous contrast. Auto Exposure Controls were utilized during the CT exam to meet ALARA standards for radiation dose reduction. INDICATION: Right flank pain. Correlation is made with prior CT 09/18/2016. Lung bases are clear. No liver mass is identified. Gallbladder is surgically absent. No biliary ductal dilatation is seen. Pancreas and spleen are unremarkable. No adrenal mass is detected. No renal calculi or hydronephrosis is seen. There is no ureteral calculi detected. Aorta is calcified but nonaneurysmal. There are postoperative changes to the right paramidline anterior abdominal wall. There is a fat-containing ventral hernia present. No herniated bowel loops are seen. Bowel loops are normal caliber without evidence of obstruction. There is diverticulosis of the sigmoid and descending colon but no evidence of acute diverticulitis. There is no free fluid or fluid collection. Bladder is unremarkable. Prostate is unremarkable. The bony structures are nonacute. IMPRESSION: 1. No evidence of urinary tract calculi or obstruction. 2. Uncomplicated diverticulosis. 3. Fat-containing midline ventral hernia. Dictated by: Dictated on workstation # [id number]
== END ==
LOC: RAD 13:23
PROVIDERS: ATTEND Internal Medicine Nephrology
DX: N18.30 Chronic kidney disease, stage 3 unspecified (principal); K43.9 Ventral hernia without obstruction or gangrene; K57.30 Diverticulosis of large intestine without perforation or abscess without bleeding
CPT/HCPCS: 74176

== ENCOUNTER 2022-12-06 10:39 | Outpatient (RCR) | payer MEDICARE ==
[~2022-12-06 10:39] MED LIST changes: +LEVO-55 PO; -LEVO500T80 PO
[2022-12-31] MEDS ORDERED: ISOS30TA82 PO (10:15)
[2022-12-31] MEDS ORDERED: FURO20TA4 PO (10:15)
[2022-12-31] MEDS ORDERED: FLAX1CAP4 PO (10:15)
[2022-12-31] MEDS ORDERED: GABA300S3 PO (10:15)
[2022-12-31] MEDS ORDERED: ASPI-999 PO (10:15)
[2022-12-31] MEDS ORDERED: CNC1KV IM (10:15)
[2022-12-31] MEDS ORDERED: RANO500T6 PO (10:15)
[2022-12-31] MEDS ORDERED: CHOL200012 PO (10:15)
[2022-12-31] MEDS ORDERED: METO-333 PO (10:15)
[2022-12-31] MEDS ORDERED: ATOR40TA70 PO (10:15)
== END 2022-12-21 | disposition home or self-care (01) ==
LOC: ONC 10:39
PROVIDERS: ATTEND Radiology Radiation Oncology
DX: C61 Malignant neoplasm of prostate (principal); I10 Essential (primary) hypertension; I25.10 Atherosclerotic heart disease of native coronary artery without angina pectoris; E55.9 Vitamin D deficiency, unspecified
CPT/HCPCS: 99205

== ENCOUNTER → 2022-12-16 | Outpatient (CLI) | payer MEDICARE ==
[2022-12-16] MEDS: CATHETER FLUSH 10 ML SYR IVP PRN ×2 (10:51→10:54)
--- NOTE | 2022-12-17 11:29 | Diagnostic Imaging Report ---
Indication: Initial staging prostate carcinoma. Patient was administered 9.7 mCi F-18 Pylarify and PET imaging was performed from the top of skull to mid thighs. Noncontrast CT was also performed for attenuation correction and anatomic correlation. No prior imaging is available for comparison. There is physiologic activity within the lacrimal and salivary glands. Mediastinum and [place] are unremarkable. No pulmonary parenchymal uptake is seen. There is a large calcified node in the mediastinum consistent with prior granulomatous exposure. There is physiologic activity within the liver and spleen as well as the kidneys and gastrointestinal tract. There is activity within the bladder. There is a focus centrally within the prostate gland, perhaps patient's known prostate carcinoma. No abnormal activity within abdominal or pelvic lymph nodes is identified. IMPRESSION: Solitary focus of abnormal uptake involving the prostate gland centrally. No other abnormalities detected. Dictated by: Dictated on workstation # [id number]
== END ==
LOC: RAD 08:21
PROVIDERS: ATTEND Radiology Radiation Oncology
DX: C61 Malignant neoplasm of prostate (principal)
CPT/HCPCS: 78815; A9595

== ENCOUNTER → 2022-12-30 | Outpatient (CLI) | payer MEDICARE ==
[~2022-12-30] VITALS: Ht 170.2 cm; Wt 115.9 kg
[~2022-12-30] MED LIST changes: +ASPI-999 PO; +ATOR40TA70 PO; +CHOL200012 PO; +CNC1KV IM; +FLAX1CAP4 PO; +FURO20TA4 PO; +GABA300S3 PO; +ISOS30TA82 PO; +METO-333 PO; +RANO500T6 PO
== END ==
LOC: PREOP 06:01
PROVIDERS: ATTEND Specialist
DX: Z01.818 Encounter for other preprocedural examination (principal); C61 Malignant neoplasm of prostate

== ENCOUNTER 2023-01-06 05:57 | Day surgery (SDC) | payer MEDICARE ==
[2023-01-06] VITALS (10 sets, daily range): BP systolic 111–153; BP diastolic 55–74
[~2023-01-06] VITALS: Ht 170.2 cm; Wt 115.9 kg
[2023-01-06] MEDS ORDERED: LACTATED RINGERS 1,000 ML 1,000 ML IV PRN (07:30)
[2023-01-06] MEDS ORDERED: fentaNYL INJECTION 100 MCG/2 ML VIAL ONE (08:22)
--- NOTE | 2023-01-06 08:23 | Progress Note-Pre Operative ---
Pre-Operative Progress Note Date of Available H&P: Dec 28, 2022 Date H&P Reviewed: Jan 06, 2023 Time H&P Reviewed: 08:22 History & Physical: H&P Reviewed, Patient Examed, No changes noted Pre-Operative Diagnosis: Prostate cancer Savanah NASCIMENTO MD Jan 06, 2023 08:22
--- NOTE | 2023-01-06 08:25 | Progress Note-Post Operative ---
Post-Operative Progess Note Surgeon (s)/Surgical Services Asst (s) Surgeon Savanah NASCIMENTO MD Surgical Services Asst n/a Pre-Operative Diagnosis Prostate cancer Post-Operative Diagnosis same Post-Op Procedure Note Date of Procedure: Jan 06, 2023 Name of Procedure Performed: Transperineal placement of gold fiducial seed markers with TRUS guidance, transperineal injection of absorbable prostate-rectal spacer using the [employer] [place] system with transrectal ultrasound guidance Description & Findings Description and Findings: n/a Estimated Blood Loss minimal Packing none. Specimen(s) collected/removed None Savanah NASCIMENTO MD Jan 06, 2023 08:25
[2023-01-06] MEDS ORDERED: LIDOCAINE PF 2% 5 ML VIAL ONE (08:30)
[2023-01-06] MEDS ORDERED: proPOfol INJECTION 200 MG/20 ML VIAL IV ONE (08:30)
[2023-01-06] MEDS ORDERED: ONDANSETRON INJECTION 4 MG/2 ML (SDV) ONE (08:30)
[2023-01-06] MEDS ORDERED: dexAMETHasone INJ 10 MG/ML 1 ML VIAL ONE (08:30)
[2023-01-06] MEDS ORDERED: SEVOFLURANE (ULTANE) 15 ML INHAL SOLN ONE (08:53)
--- NOTE | 2023-01-06 13:30 | Anesthesia-General Post-Op ---
General Patient Condition Mental Status/LOC: Same as Preop Cardiovascular: Satisfactory Nausea/Vomiting: Absent Respiratory: Satisfactory Pain: Controlled Complications: Absent Post Op Complications Complications None Follow Up Care/Instructions Patient Instructions None needed. Anesthesia/Patient Condition Patient Condition Patient is doing well, no complaints, stable vital signs, no apparent adverse anesthesia problems. No complications reported per nursing. CITLALY GONZALEZ CRNA Jan 06, 2023 13:30
== END 2023-01-06 10:30 | disposition home or self-care (01) ==
LOC: SDC 05:57
PROVIDERS: ATTEND Specialist
DX: C61 Malignant neoplasm of prostate (principal); E66.01 Morbid (severe) obesity due to excess calories; Z68.41 Body mass index [BMI] 40.0-44.9, adult
CPT/HCPCS: 55874; 55876; 87081; A4648; C1889

== ENCOUNTER 2023-01-18 10:40 | Outpatient (RCR) | payer MEDICARE | END 2023-01-20 | disposition home or self-care (01) | LOC: ONC 10:40 | PROVIDERS: ATTEND Radiology Radiation Oncology | DX: Z51.0 Encounter for antineoplastic radiation therapy (principal); C61 Malignant neoplasm of prostate; I10 Essential (primary) hypertension; I25.10 Atherosclerotic heart disease of native coronary artery without angina pectoris; E55.9 Vitamin D deficiency, unspecified; Z98.890 Other specified postprocedural states | CPT/HCPCS: 77300; 77301; 77334; 77338 ==